=== PATIENT | male | born 1970 | race Caucasian/White ===

== ENCOUNTER 2020-12-26 19:26 | Emergency (ER) | payer OTHER, SELFPAY ==
[2020-12-26 19:50] VITALS: BP 98/61; PULSE 82; RESP 17; TEMP 37.2; O2SAT 96; BMI 33.0
--- NOTE | 2020-12-26 22:13 | XRR_ITS ---
PROCEDURE INFORMATION: Exam: XR Chest Exam date and time: 12/26/2020 10:13 PM Age: 50 years old Clinical indication: Patient HX: Fever x 6days, lightheaded, cough, n/v TECHNIQUE: Imaging protocol: XR of the chest. Views: 1 view. COMPARISON: No relevant prior studies available. FINDINGS: Lungs: Lungs are clear. Pleural spaces: There is no pleural effusion or pneumothorax. Heart/Mediastinum: The cardiac silhouette is within normal limits of size given AP technique. Bones/joints: Bones are unremarkable. XR/XR chest 1V portable [id number] IMPRESSION: No acute findings.
--- NOTE | 2020-12-26 22:22 | ED_ITS ---
HPI - Fever General: Chief Complaint: Fever Stated Complaint: FEVER Time Seen by Provider: 12/26/20 22:13 Source: patient Mode of arrival: ambulatory Limitations: no limitations History of Present Illness: HPI Narrative: 50-year-old male states that he has been having low-grade fevers over the last 6 days. He states he is taken Motrin Tylenol at home and his temperature has been getting 200 101. He is afebrile here. He states his blood pressures been running a little low as well. He had a slight cough over the last 6 days. He denies any neck pain or sore throat. He denies any shortness of breath. He states he is also around a lot of ticks and could have had a tick bite as well. Denies any sick contacts. Associated symptoms: Deny abdominal pain, chest pain, diarrhea, dysuria, headache(s), nausea or vomiting Review of Systems Const: Reports: fever(s) Eyes: Denies: blurry vision or eye discomfort ENMT: Denies: throat pain or dental pain Card: Denies: chest pain Resp: Denies: dyspnea GI: Denies: abdominal pain, nausea, vomiting or diarrhea : Denies: dysuria Musc: Denies: neck pain or back pain Skin/Breast: Denies: rash Neuro: Denies: headache(s) Psych: Denies: depression Artemio/Lymph: Denies: easy bruising All/Imm: Denies: urticaria Physical Exam Const: COMMON NORMALS: no acute distress, patient oriented x3 and healthy appearing HENMT: COMMON NORMALS: normocephalic and atraumatic HEAD & SCALP: normocephalic and atraumatic Eye: COMMON NORMALS: Equal, round and reactive pupils present and EOMs intact bilaterally PUPIL: Yes Equal, round and reactive pupils present Neck/C-Spine: COMMON NORMALS: full ROM and supple Chest: COMMONS NORMALS: normal inspection of the chest and normal palpation of entire chest wall Resp: COMMON NORMALS: normal respiratory effort, No retractions, No use of accessory muscles and clear to auscultation bilaterally AUSCULTATION: clear to auscultation bilaterally Cardio: COMMON NORMALS: regular rate, regular rhythm and No murmurs present (Cardio) RATE: regular rate RHYTHM: regular rhythm GI: COMMON NORMALS: Normal to inspection, nondistended, normoactive bowel sounds present, Soft to palpation, non-tender and no masses PALPATION: Yes Soft to palpation Extremity: COMMON NORMALS: normal to inspection and full ROM Neuro: COMMON NORMALS: patient oriented x3, moves all extremities and no focal motor deficits Psych: COMMON NORMALS: mental status grossly normal, Normal thought process present and cooperative THOUGHT PROCESS: Normal thought process present Skin: COMMON NORMALS: no rashes or lesions noted and no wounds GENERAL SKIN EXAM: no rashes or lesions noted Course Vital Signs: Vital signs: Vital Signs Temperature 99 F 12/26/20 19:50 Pulse Rate 86 12/27/20 01:07 Respiratory Rate 18 12/27/20 01:07 Blood Pressure 140/72 12/27/20 01:07 Pulse Oximetry 100 12/27/20 01:07 MDM - Fever MDM Narrative: Medical decision making narrative: Patient presents with fever slight cough. His blood work here are normal. Patient has had a recent tick bite we will start him on doxycycline for possible tickborne illness. He is to follow-up PCP and return if worsening. Lab Data: Labs: Lab Results 12/26/20 12/26/20 12/26/20 Range/Units 22:35 22:55 22:55 WBC 3.9 L (4.0-10.0) 10^3/ uL RBC 4.85 (4.1-5.3) 10^6/u L Hgb 13.9 (11.7-16.6) g/dL Hct 41.1 L (42.0-52.0) % MCV 84.7 (80-94) fL MCH 28.7 (28.0-34.0) pg MCHC 33.8 (30.0-36.0) g/dL RDW 12.7 (12.1-15.1) % Plt Count 101 L (130-400) 10^3/c mm MPV 11.5 H (7.4-10.4) fL Neut % (Auto) 54.5 % Lymph % (Auto) 37.2 % Pennington % (Auto) 6.7 % Eos % (Auto) 0.5 % Baso % (Auto) 0.8 % Neut # (Auto) 2.13 (1.8-7.7) 10^3/u L Lymph # (Auto) 1.5 (0.8-4.8) 10^3/u L Pennington # (Auto) 0.3 (0.2-0.9) 10^3/u L Eos # (Auto) 0.0 (0.0-0.8) 10^3/u L Baso # (Auto) 0.0 (0.0-0.1) 10^3/u L Nucleated RBC % (a uto) 0 % Nucleated RBCs # 0.0 /100WBC Sodium 128 L (136-145) mmol/L Potassium 4.1 (3.5-5.1) mmol/L Chloride 93 L (98-107) mmol/L Carbon Dioxide 25 (22-29) mmol/L Anion Gap 14.1 (5-19) BUN 28 H (6-20) mg/dL Creatinine 2.1 H (0.7-1.2) mg/dL GFR Calculation 33.5 L (90-130) mL/min Glucose 124 H (65-115) mg/dL Calculated Osmolal ity 273 L (285-295) mOsm/k g Lactate (0.5-2.2) mmol/L Calcium 8.9 (8.5-10.5) mg/dL Total Bilirubin 0.7 (0.15-1.2) mg/dL AST 158 H (0-40) U/L ALT 211 H (0-41) U/L Alkaline Phosphata se 359 H (40-130) IU/L Total Protein 7.2 (6.6-8.7) g/dL Albumin 3.8 (3.5-5.2) g/dL Globulin 3.4 (1.3-4.6) g/dL TSH 3.73 (0.27-4.20) uIU/ mL Urine Color Dark yellow (Yellow) Urine Appearance Cloudy (CLEAR) Urine pH 5 (5-7) Ur Specific Gravit y 1.025 (1.005-1.030) Urine Protein Trace (Negative) Urine Glucose (UA) Norm (Normal) Urine Ketones Negative (Negative) Urine Blood Neg (Negative) Urine Nitrate Negative (Negative) Urine Bilirubin 2+ H (Negative) Urine Urobilinogen 8 H (Negative) mg/dL Ur Leukocyte Na ase Trace H (Negative) Urine RBC 0-4 H (0-2) /hpf Urine WBC 0-4 H (0-5) /hpf Ur Squamous Epith Cells 0-4 H (0-5) /hpf Amorphous Sediment 2+ /hpf Urine Bacteria Trace (NONE) /hpf Hyaline Casts 5-10 H /lpf SARS-CoV-2 Ag (Rap id) (Negative) 12/26/20 12/26/20 Range/Units 22:55 23:00 WBC (4.0-10.0) 10^3/ uL RBC (4.1-5.3) 10^6/u L Hgb (11.7-16.6) g/dL Hct (42.0-52.0) % MCV (80-94) fL MCH (28.0-34.0) pg MCHC (30.0-36.0) g/dL RDW (12.1-15.1) % Plt Count (130-400) 10^3/c mm MPV (7.4-10.4) fL Neut % (Auto) % Lymph % (Auto) % Pennington % (Auto) % Eos % (Auto) % Baso % (Auto) % Neut # (Auto) (1.8-7.7) 10^3/u L Lymph # (Auto) (0.8-4.8) 10^3/u L Pennington # (Auto) (0.2-0.9) 10^3/u L Eos # (Auto) (0.0-0.8) 10^3/u L Baso # (Auto) (0.0-0.1) 10^3/u L Nucleated RBC % (a uto) % Nucleated RBCs # /100WBC Sodium (136-145) mmol/L Potassium (3.5-5.1) mmol/L Chloride (98-107) mmol/L Carbon Dioxide (22-29) mmol/L Anion Gap (5-19) BUN (6-20) mg/dL Creatinine (0.7-1.2) mg/dL GFR Calculation (90-130) mL/min Glucose (65-115) mg/dL Calculated Osmolal ity (285-295) mOsm/k g Lactate 1.2 (0.5-2.2) mmol/L Calcium (8.5-10.5) mg/dL Total Bilirubin (0.15-1.2) mg/dL AST (0-40) U/L ALT (0-41) U/L Alkaline Phosphata se (40-130) IU/L Total Protein (6.6-8.7) g/dL Albumin (3.5-5.2) g/dL Globulin (1.3-4.6) g/dL TSH (0.27-4.20) uIU/ mL Urine Color (Yellow) Urine Appearance (CLEAR) Urine pH (5-7) Ur Specific Gravit y (1.005-1.030) Urine Protein (Negative) Urine Glucose (UA) (Normal) Urine Ketones (Negative) Urine Blood (Negative) Urine Nitrate (Negative) Urine Bilirubin (Negative) Urine Urobilinogen (Negative) mg/dL Ur Leukocyte Na ase (Negative) Urine RBC (0-2) /hpf Urine WBC (0-5) /hpf Ur Squamous Epith Cells (0-5) /hpf Amorphous Sediment /hpf Urine Bacteria (NONE) /hpf Hyaline Casts /lpf SARS-CoV-2 Ag (Rap id) Negative (Negative) Imaging Data^: CXR: Attestation: I personally reviewed and interpreted this imaging study as follows: Radiologist's impression: [address] [address] XRay Report Signed Patient: Gagandeep Ocampo Unit #: [id number] : 1970 Age/Sex: 50 / M ADM Date: 12/26/20 Loc: ER Room/Bed: Attending Dr: Ordering Provider/Ordering MD: Juan Manuel Hines MD Date of Service: 12/26/20 Procedure(s): XR chest 1V portable [id number] Accession Number(s): [id number] Report Number: [id number] PROCEDURE INFORMATION: Exam: XR Chest Exam date and time: 12/26/2020 10:13 PM Age: 50 years old Clinical indication: Patient HX: Fever x 6days, lightheaded, cough, n/v TECHNIQUE: Imaging protocol: XR of the chest. Views: 1 view. COMPARISON: No relevant prior studies available. FINDINGS: Lungs: Lungs are clear. Pleural spaces: There is no pleural effusion or pneumothorax. Heart/Mediastinum: The cardiac silhouette is within normal limits of size given AP technique. Bones/joints: Bones are unremarkable. XR/XR chest 1V portable [id number] IMPRESSION: No acute findings. Discharge Plan Discharge Patient Disposition: Home Clinical Impression: Tick borne fever Condition: Stable Prescriptions: New doxycycline hyclate 100 mg capsule 100 mg PO BID 14 Days Qty: 28 RF: 0 Discharge Orders: Discharge ED (Routine); Ordered 12/26/20 Ordered By: Juan Manuel Hines Referrals: Maria T Mcmahon DO [Primary Care Provider] - 1-3 days Discharge Diet: Advance as tolerated Discharge Activity: Resume usual activity Patient Instructions: Tick Bite (ED) Coding Level of Care Code ED Switch House Operator for Ceciliag Fwd Exam Comprehensive
[2020-12-26] MEDS: sodium chloride 0.9% 1,000 ML 999 ML IV (22:30)
[2020-12-26 22:59] VITALS: BP 104/63; PULSE 83; RESP 18; O2SAT 97
[2020-12-26 23:04] LABS: Bilirubin Urine 2+ (Negative); Blood Urine Neg (Negative); Glucose Urine UA Norm (Normal); Ketones Urine Negative (Negative); Leukocyte Esterase Urine Trace (Negative); Nitrate Urine Negative (Negative); Protein Urine Trace (Negative); Specific Gravity, Urine 1.025 (1.005-1.030); Urine Appearance Cloudy (CLEAR); Urine Color Dark Yellow (Yellow); Urobilinogen Urine 8 mg/dL (Negative); pH Urine 5 (5-7)
[2020-12-26 23:05] LABS: Add Urine Microscopic? YES; Amorphous Sediment Urine 2+ /hpf; Bacteria Urine TRACE /hpf; RBC Urine 0-4 /hpf (0-2); Squamous Epithelial Cell Urine 0-4 /hpf (0-5); WBC Urine 0-4 /hpf (0-5)
[2020-12-26 23:18] LABS: Basophils % 0.8 %; Eosinophils % 0.5 %; Hematocrit 41.1 % (42.0-52.0); Hemoglobin 13.9 g/dL (11.7-16.6); Lymphocytes # 1.5 10^3/uL (0.8-4.8); Lymphocytes % 37.2 %; Mean Corpuscular HGB Conc 33.8 g/dL (30.0-36.0); Mean Corpuscular Hemoglobin 28.7 pg (28.0-34.0); Mean Corpuscular Volume 84.7 fL (80-94); Mean Platelet Volume 11.5 fL (7.4-10.4); Monocytes # 0.3 10^3/uL (0.2-0.9); Monocytes % 6.7 %; Neutrophils # 2.13 10^3/uL (1.8-7.7); Neutrophils % 54.5 %; Nucleated Red Blood Cells % 0 %; Platelet Count 101 10^3/cmm (130-400); Red Blood Count 4.85 10^6/uL (4.1-5.3); Red Cell Distribution Width 12.7 % (12.1-15.1); White Blood Count 3.9 10^3/uL (4.0-10.0)
[2020-12-26 23:29] VITALS: BP 109/71; PULSE 82; RESP 18; O2SAT 100
[2020-12-26 23:34] LABS: SARS Covid-2 Antigen Negative (Negative)
[2020-12-26 23:36] LABS: Lactate (Lactic Acid level) 1.2 mmol/L (0.5-2.2)
[2020-12-26 23:40] LABS: Slide Review Slide Review Perform
[2020-12-26 23:47] LABS: Alanine Aminotransferase 211 U/L (0-41); Albumin Level 3.8 g/dL (3.5-5.2); Alkaline Phosphatase 359 IU/L (40-130); Anion Gap 14.1 (5-19); Aspartate Amino Transferase 158 U/L (0-40); Blood Urea Nitrogen 28 mg/dL (6-20); Calcium 8.9 mg/dL (8.5-10.5); Carbon Dioxide 25 mmol/L (22-29); Chloride 93 mmol/L (98-107); Globulin 3.4 g/dL (1.3-4.6); Glomerular Filtration Rate 33.5 mL/min (90-130); Glucose 124 mg/dL (65-115); Osmolality Calculated 273 mOsm/kg (285-295); Potassium 4.1 mmol/L (3.5-5.1); Sodium 128 mmol/L (136-145); Thyroid Stimulating Hormone 3.73 uIU/mL (0.27-4.20); Total Bilirubin 0.7 mg/dL (0.15-1.2); Total Protein 7.2 g/dL (6.6-8.7)
[2020-12-27] VITALS: BP 138/99; PULSE 88; RESP 18; O2SAT 100
[2020-12-27] MEDS: sodium chloride 0.9% 1,000 ML 999 ML IV (00:22)
[2020-12-27 00:29] VITALS: BP 154/119; PULSE 97; RESP 18; O2SAT 96
[2020-12-27 00:59] VITALS: BP 132/72; PULSE 86; RESP 18; O2SAT 96
[2020-12-27 01:07] VITALS: BP 140/72; PULSE 86; RESP 18; O2SAT 100
[2020-12-28 12:28] LABS: Lyme AB Screen <0.90 index
[2021-01-02 17:32] LABS: E. Chaffeensis AB IGG <1:64; E. Chaffeensis AB IGM <1:20
[2021-01-03 17:27] LABS: RMSF IGG NOT DETECTED; RMSF IGM NOT DETECTED
== END 2020-12-27 01:14 | disposition home or self-care (01) ==
PROVIDERS: Emergency Provider Emergency Medicine; PCP Family Medicine
DX: A93.8 Other specified arthropod-borne viral fevers (principal)
CPT/HCPCS: 71045; 80053; 81001; 83605; 84443; 85025; 86618; 86666; 86757; 87040; 87426; 96360; 96361; 99284; J7030

== ENCOUNTER → 2021-01-02 11:19 | Outpatient (BNVA) | payer OTHER, SELFPAY | PROVIDERS: PCP Family Medicine; Visit Provider Family Medicine | DX: R79.89 Other specified abnormal findings of blood chemistry (principal); I10 Essential (primary) hypertension; E78.00 Pure hypercholesterolemia, unspecified; I25.2 Old myocardial infarction | CPT/HCPCS: 80053 ==

== ENCOUNTER → 2021-01-31 08:34 | Outpatient (BNVA) | payer OTHER, SELFPAY | PROVIDERS: PCP Family Medicine; Visit Provider Family Medicine | DX: R79.89 Other specified abnormal findings of blood chemistry (principal); E78.00 Pure hypercholesterolemia, unspecified; I25.2 Old myocardial infarction; I10 Essential (primary) hypertension; Z12.11 Encounter for screening for malignant neoplasm of colon; Z12.5 Encounter for screening for malignant neoplasm of prostate | CPT/HCPCS: 80053; 80061; G0103 ==

== ENCOUNTER 2023-08-24 10:00 | Outpatient (CLI) | payer BC, SELFPAY ==
--- NOTE | 2023-08-24 | ECG_ITS ---
[facility] Test Date: 2023-08-24 Pat Name: Gagandeep Ocampo Department: Room: Gender: Male Communication Clerk: Jessica LeeJonathan : 1970 Requested By: Connie Tillman Order Number: [id number] Velia MD: Shoaib Hernandez M.D. Interpretive Statements NAME OF STUDY: LEXISCAN SESTAMIBI STRESS TEST INDICATION: [Chest Pain, ] Procedure: At the baseline, the blood pressure was 149/101 mmHg with a heart rate of 53 bpm. The electrocardiogram showed sinus bradycardia, interventricular conduction delay with normal ST and T's. The Lexiscan was infused over a period of 20 seconds. A total of 0.4 mg of Lexiscan was infused. The stress phase was continued for a total of 5 minutes. Heart rate was at the end of stress phase was 61 bpm and a blood pressure of 145/93 mmHg. The EKG at the peak infusion revealed normal sinus rhythm with no significant ST-T wave changes. Sestamibi was injected 20 seconds after the Lexiscan infusion. Blood pressure at the end of recovery phase was 140/92 mmHg with a heart rate of 60 bpm. Conclusion: 1. Normal EKG response to Lexiscan infusion 2. No Lexiscan induced chest pain or cardiac arrhythmia. 3. Normal blood pressure and heart rate response. 4. Sestamibi/sestamibi perfusion scan pending; see separate report. Electronically Signed On 09-04-2023 11:57:32 SANDER OPERATOR by Shoaib Hernandez M.D. [id number]
[2023-08-24 10:26] VITALS: BMI 33.8
--- NOTE | 2023-08-24 10:27 | NMCV_ITS ---
NM bailey perf SPECT r/s* [id number] Gagandeep Ocampo Age: 52 Gender: M : 1970 Exam Date: 08/24/2023 10:57 Ordering Phys: Connie Tillman Technologist: MERLINE Engle Exam Location: [facility] Indications: CHEST PAIN STRESS TEST Please see separate stress test report in [facility] for full findings IMAGE PROTOCOL Rest/Stress 1 Lexiscan Day Radiopharmaceutical Dose (mCi) Administration Site Administered by Rest: Tc-99m 11.0 IV MERLINE Engle Sestamibi Stress:Tc-99m 32.4 IV Patricia Weiss, PRIMER BOXER Sestamibi Rest: 24-Aug-2023 60 Discovery 630 Stress: 24-Aug-2023 30 Discovery 630 0.4mg Lexiscan. Images obtained in supine and prone position. SPECT RESULTS Technical Quality: Excellent Raw Data Analysis: Normal Image Corrections: No attenuation or motion correction applied Summed Stress Score: 24 Summed Rest Score: 19 Summed Difference Score: 5 PERFUSION FINDINGS There is a large sized fixed area of partially reversible perfusion defect noted in apical, apical anterior and apical septal robert. This is consistent with large area of prior infarct with medium sized area of cinthia-infarct ischemia in LAD territory. There is a large sized mostly fixed perfusion defect noted in the inferior and inferolateral robert. This is consistent with large sized area of prior infarct in RCA and left circumflex artery territories with minimal cinthia-infarct ischemia. FUNCTIONAL RESULTS (calculated via Gated SPECT) Stress Image LV EF (%): 42 Stress EDV (mL):151 TID: 1.3 Stress ESV (mL):88 FUNCTIONAL FINDINGS: LV systolic function is mild to moderately reduced. TID ratio is elevated. This represents subendocardial ischemia versus multivessel CAD. IMPRESSIONS 1. Abnormal myocardial perfusion imaging with large area of prior infarct with medium sized area of cinthia-infarct ischemia in LAD territory. 2. Large areas of prior infarct with minimal cinthia-infarct ischemia seen in RCA and left circumflex artery territories. 3. LV systolic function is mild to moderately reduced. 4.TID ratio is elevated. This may represent subendocardial ischemia versus multivessel coronary artery disease. Shoaib Hernandez MD (Electronically Signed) Final Date: 26 August 2023 09:08 S
[2023-08-24] MEDS: regadenoson 0.4 Mg/5 ml Syringe IVP (12:12)
[2023-08-24 12:31] VITALS: BP 140/92; PULSE 58
== END 2023-08-24 10:01 | disposition home or self-care (01) ==
PROVIDERS: PCP Family Medicine; Visit Provider Nurse Practitioner Family
DX: R07.89 Other chest pain (principal)
CPT/HCPCS: 36415; 78452; 93017; 96374; A9500; J2785

== ENCOUNTER 2023-09-09 13:26 | Outpatient (CLI) | payer BC, SELFPAY ==
--- NOTE | 2023-09-09 13:45 | USCV_ITS ---
Gagandeep Ocampo Age: 52 Gender: M : 1970 Exam Date: 09/09/2023 12:58 Ordering Phys: Shoaib Hernandez M.D ([email or web address]) Technologist: CT Exam Location: [facility] [place] Indication: sob BP: 110 / 68 HR: Rhythm: Sinus Technical Quality: Adequate MEASUREMENTS (Male / Female) Normal Values 2D ECHO LVOT Diameter 2.2 cm LV Ejection Fraction MOD 2C 70.3 % LV Ejection Fraction 2C AL 0.0 % LA Diameter 4.1 cm Aorta at Sinotubular Diameter 3.0 cm IVC Diameter 1.7 cm M-MODE LA Ao Ratio MM 1.5 AV Cusp Separation MM 2.6 cm DOPPLER AV Peak Velocity 171.0 cm/s LVOT Peak Velocity 143.0 cm/s AV Area Cont Eq vti 3.7 cm squared AV Area Cont Eq pk 3.1 cm squared MV Peak Velocity 101.0 cm/s MV Area PHT 2.5 cm squared Mitral E to A Ratio 0.8 TV Peak Velocity 129.5 cm/s TR Peak Velocity 132.0 cm/s TR Peak Gradient 7.0 mmHg TV Peak E Velocity 75.0 cm/s Right Atrial Pressure 3.0 mmHg Pulmonary Artery Systolic Pressu 10.0 mmHg PV Peak Velocity 116.0 cm/s FINDINGS Left Ventricle Left ventricle is normal in size. LV systolic function is normal with EF of 60-65%. No regional wall motion abnormalities. Grade 1 diastolic dysfunction. Right Ventricle Normal in size and function Right Atrium Normal in size Left Atrium Normal in size Mitral Valve Structurally normal mitral valve. Trace mitral regurgitation. Aortic Valve Structurally normal aortic valve. No significant stenosis or regurgitation. Tricuspid Valve Mild tricuspid regurgitation. Pulmonary artery systolic pressure is normal. Pulmonic Valve Not well visualized Pericardium Normal Aorta Normal in size IVC Appears to be normal CONCLUSIONS LV systolic function is normal with EF of 60 to 65%. Grade 1 diastolic dysfunction. Trace mitral regurgitation. Mild tricuspid regurgitation No comparison studies are available Shoaib Hernandez MD (Electronically Signed) Final Date: 15 September 2023 12:35 S
== END 2023-09-09 13:27 | disposition home or self-care (01) ==
LOC: RAD 13:26
PROVIDERS: Visit Provider Internal Medicine
DX: I08.1 Rheumatic disorders of both mitral and tricuspid valves (principal); R06.02 Shortness of breath
CPT/HCPCS: 93306

== ENCOUNTER 2023-09-15 11:05 | Outpatient (CLI) | payer BC, SELFPAY ==
[2023-09-15 11:25] LABS: Basophils # 0.1 10^3/uL (0.0-0.1); Basophils % 0.8 %; Eosinophils # 0.1 10^3/uL (0.0-0.8); Eosinophils % 2.2 %; Hematocrit 45.4 % (37-53); Lymphocytes # 1.8 10^3/uL (0.8-4.8); Lymphocytes % 28.6 %; Mean Corpuscular HGB Conc 33.9 g/dL (30-55); Mean Corpuscular Hemoglobin 29.8 pg (27-33); Mean Platelet Volume 9.7 fL (7.4-10.4); Monocytes # 0.4 10^3/uL (0.2-0.9); Monocytes % 6.1 %; Neutrophils # 3.97 10^3/uL (1.8-7.7); Nucleated Red Blood Cells % 0 %; Platelet Count 270 10^3/cmm (157-399); Red Blood Count 5.16 10^6/uL (3.85-5.65)
[2023-09-15 11:41] LABS: INR 0.87 (0.83-1.21); Prothrombin Time (Patient) 12.1 Seconds (12.0-15.1)
[2023-09-15 11:47] LABS: Anion Gap 16.4 (5-19); Blood Urea Nitrogen 17 mg/dL (6-20); Calcium 9.5 mg/dL (8.5-10.5); Carbon Dioxide 28 mmol/L (22-29); Chloride 99 mmol/L (98-107); Glomerular Filtration Rate 63.3 mL/min (90-130); Glucose 119 mg/dL (65-115); Osmolality Calculated 291 mOsm/kg (285-295); Potassium 4.4 mmol/L (3.5-5.1); Sodium 139 mmol/L (136-145)
== END 2023-09-15 11:06 | disposition home or self-care (01) ==
LOC: LAB 11:07
PROVIDERS: Visit Provider Internal Medicine
DX: I25.10 Atherosclerotic heart disease of native coronary artery without angina pectoris (principal); I10 Essential (primary) hypertension
CPT/HCPCS: 36415; 80048; 85025; 85610

== ENCOUNTER 2023-09-17 07:08 | Outpatient (CLI) | payer BC, SELFPAY ==
[2023-09-17] VITALS (12 sets, daily range): BP systolic 137–178; BP diastolic 89–111; PULSE 55–74; RESP 7–18; TEMP 36.5–37.2; O2SAT 94–97; BMI 34.7
--- NOTE | 2023-09-17 08:30 | XACV_ITS ---
Exam Room: [facility] Ht: 178 cm Wt: 110 kg BSA: 2.37 m2 Gender: Male : 1970 Any Known Allergies: No known allergies Exam Priority: Routine Procedure(s): Procedure Description: Diagnostic procedure Procedure Description: PCI procedure Procedure Description: Left Heart Catheterization Procedure Description: Left ventriculography Procedure Description: Drug Eluting Coronary Stent Procedure Description: PTCA Procedure Description: Miscellaneous Procedure Description: ACT Procedure Description: Coronary Angiography Diagnostic Cath Status: Elective Diagnostic Findings * INDICATION: Chest pain/dyspnea on exertion/ abnormal stress test. * Left Main has no significant disease. * Circumflex has mild luminal irregularities. * Right Coronary Artery has no significant disease. Givens collaterals to LAD. * Mid Left Anterior Descending:chronic total occlusion of prior proximal to mid vessel stent, LEON: 0 flow. There is another distal vessel stent that has no flow. * Coronary angiography shows right dominance. PCI Status: Elective PCI Indication: Other Interventional Findings * Procedure detail: We engaged left main artery with XB 3.5 guide catheter. IV heparin was administered to maintain anticoagulation. 0.014 run-through guidewire was initially used to attempt crossing chronically occluded proximal to mid LAD stent. However it could not cross. Then we then switched to gliding pilot instructor 50 wire. It was able to cross totally occluded segment and went into small to medium size diagonal vessel. We dilated total occlusion with 1.2 x 12 mm semicompliant balloon. This was followed by dilation with 2.0 x 15 mm semicompliant balloon. We then advanced run-through guidewire into distal LAD as flow was restored. Lye Treater wire was withdrawn. At this time we dilated the occluded segment with 2.5 x 20 mm semicompliant balloon. This was followed by placement of 2.75 x 30 mm resolute Matilde drug-eluting stent extending from mid LAD stent to distal LAD stent. In the distal stent, we dilated it with a 2.5 x 15 mm NC balloon. Proximal segment of the newly placed stent and the overlapping segment was post-dilated with 3.0 x 15 mm NC balloon. At this time final angiogram was obtained that showed excellent stent expansion, no residual stenosis and LEON-3 flow. Guidewire and guide catheter were removed. Patient left the Production Consultant in a stable condition.. * Mid Left Anterior Descendin% stenosis treated with a AB MINI TREK 1.20X12 RX BALLOON, AB MINI TREK 2.00X15 RX BALLOON, AB TREK 2.50X20 RX BALLOON, MDT R MATILDE 2.75X30 DIYA, MDT NC EUPHORA RX 2.09E67KG BALLOON, and MDT NC EUPHORA RX 3.16I22MX BALLOON. 0% residual stenosis, LEON: 3 flow. Conclusions 1. Chronic total occlusion of proximal to mid LAD stent s/p successful revascularization with 1 stent. 2. Normal left ventricular systolic function. Ejection fraction of 60%. 3. Mid Left Anterior Descending was treated with a Balloon, Balloon, Balloon, Drug Eluting Stent, Balloon, and Balloon. Recommendations * Dual antiplatelet therapy with aspirin and brilinta. * High intensity statin therapy. * Outpatient cardiology follow up in 4 weeks. Interventional RX Recommendation: PCI w/o planned CABG Diagnostic RX Recommendation: PCI w/o planned CABG Anticoagulation: Heparin Ventriculography Ejection Fraction: 60.0 % Pressures Phase:Rest AO : 148 / 94 ( 115 ) @ 9:22:00 AM 111 / 84 ( 99 ) @ 9:27:00 AM 143 / 77 ( 105 ) @ 9:47:00 AM 141 / 77 ( 104 ) @ 9:47:00 AM LV : 159 / -10 / 12 @ 9:46:00 AM 158 / -14 / 12 @ 9:47:00 AM 158 / -13 / 10 @ 9:47:00 AM Valves Phase:DefaultPhase AV : 0.0 @ 7:52:48 AM 0.0 @ 7:52:48 AM AV Mean Gradient: 0.0 @ 7:52:48 AM Clinical Evaluation EBL: 5mL-10mL Procedural Details Identified patient by full name and date of as verbalized by the patient/guarantor. Pre-Procedure Time Out. Does the consent match the physician's order: Yes. Accurate & Complete Informed Consent: Yes. Inpatient/Outpatient History & Physical on Chart: Yes. If H&P is completed, is and addenduem needed: No; If yes, is the addendum complete: N/A. Visualize and Verify Site with Patient/Guarantor: N/A. Relevant Radiology Images available: Yes. Pre-op teaching completed and patient verbalized understanding. The risks, benefits, and alternatives of sedation and/or procedure were discussed by physician. The patient agrees to continue. Procedure started. Current Diagnosis : Chest Pain. [facility] Clinical Fraility Score: 3: Managing Well. Production Consultant Indications: Worsening Angina. Chest Pain Symptom Assessment: Atypical Angina. Correct patient, site and procedure confirmed by cath team. Current diagnosis: Chest Pain. PERRLA. Strong, equal hand bioinformatics assistant bilaterally. Lungs clear x 5 lobes. IV Site on Arrival: 20 gauge in the left anticubital. IV Fluids: 0.9% NaCl at KVO. 0 mL infused prior to garage laborer. Pre Procedural Pulses: bilateral dorsalis pedis was 3+. Pre Procedural Pulses: bilateral posterior tibial was 3+. Pre Procedural Pulses: bilateral radial was 3+. Oxygen started at 2liters/min via nasal canula. right groin was prepped with chloroprep then draped in the usual sterile fashion. right radial was prepped with chloroprep then draped in the usual sterile fashion. Baseline sample Acquired. HR: 61 BPM. Physician arrived. Immediate Pre-Procedure Time Out. Physician scrubbed in. Correct Patient: Yes; Correct Procedure: Yes; Correct Site: Yes; Correct Patient Position: Yes; Correct Supplies: Yes; Dried Flammable Prep: Yes; Blood Products Available: N/A;. Lidocaine 1% infiltrated to the right radial. Arterial access obtained. A 5 indian TIG catheter in over wire. Catheter removed over the exchange wire. A 5 indian JL4 catheter in over wire. Multiple views taken of left coronary artery. Catheter removed over the exchange wire. A 5 indian JR4 catheter in over wire. Multiple views taken of right coronary artery. Catheter removed over the exchange wire. A 5 indian Angled Pig catheter in over wire. Catheter removed over the exchange wire. A TR Band was successful obtaining hemostatsis at the Right Radial artery insertion site. Lidocaine 1% infiltrated to the right groin. Arterial access obtained with micropuncture set. A 5 indian Angled Pig catheter in over wire. EDP Sample taken: LV 159/-11,12; HR: 56 BPM; SpO2: 96%. LV gram performed in SALVADOR @ 10 mL/second for a total of 30 mL. EDP Sample taken: LV 158/-15,12; HR: 59 BPM; SpO2: 96%. Pullback taken: LV 158/-14,10; AO 143/77(105); Mean: 0mmHg, Peak to Peak: 0mmHg, SEP: 4sec/min; HR: 55 BPM; SpO2: 96%. Catheter removed over the exchange wire. 6 indian XB 3.5 guide catheter was inserted over the wire. Add inventory: Co-gliding pilot instructor, endoflator. Runthrough guidewire was advanced through the guide catheter to lesion in the mid LAD. Lye Treater 50 guidewire was advanced through the guide catheter to lesion in the mid LAD. 1.2x12mm Balloon inserted to lesion in the mid LAD. Inflation number : 1 A AB MINI TREK 1.20X12 RX BALLOON was prepped and advanced across the Mid LAD , then inflated to 8 SANGEETHA for 0:20 seconds. Inflation number: 2 The AB MINI TREK 1.20X12 RX BALLOON was reinflated across the Mid LAD, to 8 SANGEETHA for 0:10 seconds. Balloon out. Lye Treater 50 wire out. Inflation number : 3 A AB MINI TREK 2.00X15 RX BALLOON was prepped and advanced across the Mid LAD , then inflated to 10 SANGEETHA for 0:25 seconds. Balloon out. A second Runthrough guidewire was advanced through the guide catheter to lesion in the mid LAD. The first Runthrough wire out. Inflation number : 4 A AB TREK 2.50X20 RX BALLOON was prepped and advanced across the Mid LAD , then inflated to 8 SANGEETHA for 0:18 seconds. Inflation number: 5 The AB TREK 2.50X20 RX BALLOON was reinflated across the Mid LAD, to 10 SANGEETHA for 0:10 seconds. Inflation number: 6 The AB TREK 2.50X20 RX BALLOON was reinflated across the Mid LAD, to 12 SANGEETHA for 0:18 seconds. Balloon out. ACT drawn. Results 381 seconds. Therapeutic limits - pre-heparin administration 90-150 seconds and monitoring heparin during a vascular procedure >250 seconds. Inflation Number : 7 A MDT R MATILDE 2.75X30 DIYA -Lot Number# _[id number] EXP: 11/24/2024 was prepped and advanced across the Mid LAD. The stent was deployed at 12 SANGEETHA for 0:30 seconds. Stent balloon out over wire. Results checked. Inflation number : 8 A MDT NC EUPHORA RX 2.17K09IP BALLOON was prepped and advanced across the Mid LAD , then inflated to 14 SANGEETHA for 0:17 seconds. Inflation number: 9 The MDT NC EUPHORA RX 2.39S91NB BALLOON was reinflated across the Mid LAD, to 12 SANGEETHA for 0:09 seconds. Balloon out. Inflation number : 10 A MDT NC EUPHORA RX 3.52I47OO BALLOON was prepped and advanced across the Mid LAD , then inflated to 12 SANGEETHA for 0:14 seconds. Inflation number: 11 The MDT NC EUPHORA RX 3.24D35GF BALLOON was reinflated across the Mid LAD, to 16 SANGEETHA for 0:14 seconds. Balloon out. Results checked. Inflation number: 12 The MDT NC EUPHORA RX 2.15Q46SJ BALLOON was reinflated across the Mid LAD, to 12 SANGEETHA for 0:11 seconds. Inflation number: 13 The MDT NC EUPHORA RX 2.94K12WF BALLOON was reinflated across the Mid LAD, to 12 SANGEETHA for 0:08 seconds. Balloon out. Results checked. Wire out. ACT drawn. Results 303 seconds. Therapeutic limits - pre-heparin administration 90-150 seconds and monitoring heparin during a vascular procedure >250 seconds. Guide catheter out. A Right femoral angiogram was performed to determine safe placement of closure device. Lidocaine 1% infiltrated to the right groin. A Angio-Seal VIP ([place]) was successful obtaining hemostatsis at the Right Femoral artery insertion site. Post Procedure: Pulses reassessed and unchanged. PERRLA. Strong, equal hand bioinformatics assistant bilaterally. No VTE prophylaxis required. Complications: None. Estimated blood loss: 5mL-10mL. Responsiveness - Normal response to verbal stimuli; alert and oriented, PERRLA. Airway - Unaffected, no intervention required; spontaneous ventilation. Circulation: W/N/L, pulses unchanged. Nausea/Vomiting: No. Procedure completed. Post-op diagnosis: LABORER PIPELINE previous LAD stent. DIYA placement. Medication's Wasted: Other = Fentanyl 50mcg Versed 1 mg. Medication's Wasted: Heparin = 1000 units. Medication's Wasted: Nitro = 49.6 mg. Total IV fluids: 110 mL. Vital chart was stopped. Patient transferred by stretcher to CPRU. Access Site Site: Right Radial artery Sheath Size: 6 Fr Hemostasis Method: TR Band Hemostasis Success: Successful Site: Right Femoral artery Sheath Size: 6 Fr Hemostasis Method: Angio-Seal VIP ([place]) Hemostasis Success: Successful Procedure Medications Start: 9:15 AM Stop: 9:15 AM Medication: Versed Amount: 1 mg Route: I.V. Start: 9:15 AM Stop: 9:15 AM Medication: Fentanyl Amount: 25 mcg Route: I.V. Start: 9:20 AM Stop: 9:20 AM Medication: Nitrogylcerin Amount: 200 mcg Route: I.A. Start: 9:21 AM Stop: 9:21 AM Medication: Versed Amount: 1 mg Route: I.V. Start: 9:22 AM Stop: 9:22 AM Medication: Heparin Amount: 5000 units Route: I.V. Start: 9:33 AM Stop: 9:33 AM Medication: Fentanyl Amount: 25 mcg Route: I.V. Start: 9:40 AM Stop: 9:40 AM Medication: Versed Amount: 1 mg Route: I.V. Start: 9:45 AM Stop: 9:45 AM Medication: Heparin Amount: 5000 units Route: I.V. Start: 10:01 AM Stop: 10:01 AM Medication: Heparin Amount: 1000 units Route: I.V. Start: 10:20 AM Stop: 10:20 AM Medication: Nitrogylcerin Amount: 200 mcg Route: I.C. Start: 10:46 AM Stop: 10:46 AM Medication: Hydralazine Amount: 10 mg Route: I.V. I, the attending physician, have reviewed and verified all procedure medications. Yes, all medications given per verbal order History/Risk Factors Hypertension: Yes Dyslipidemia: No Peripheral Arterial Disease (PAD): No Myocardial Infarction (MA): Yes Obesity: No Renal Disease: No Tobacco Use: Former Prior Interventions PCI: Yes CABG: No Valve Surgery: No Report Signatures Finalized by Shoaib Hernandez MD on 10/01/2023 11:37 AM
--- NOTE | 2023-09-17 09:00 | P.HPUD_ITS ---
Surgery/Procedure H&P Update DATE OF PROCEDURE: September 17, 2023 DATE H&P PERFORMED: 09/03/23 H&P UPDATE INFORMATION: I have reviewed H&P completed within last 30 days, I have examined patient prior to procedure and No changes to prior documentation PREOP DIAGNOSIS: Worsening angina/abnormal stress test PRIMARY INDICATION FOR PROCEDURE: Worsening angina/abnormal stress test PLANNED PROCEDURE: Operation Date: 09/17/23 08:30 Proposed Procedures p [facility] [address], R94.39(Left) - Shoaib Hernandez M.D Possible percutaneous coronary intervention PATIENT REASSESSED PRIOR TO SEDATION, WITH NO CHANGE NOTED: Yes PHYSICAL EXAM: alert, oriented x 3, clear to auscultation bilaterally and regular rate & rhythm AIRWAY EVAL/ANESTHESIA PLAN: normal airway, ASA III, Local Anesthesia, Risks, benefits & alternatives of sedation and/or procedure discussed and Patient agrees to continue as planned ADDITIONAL INFORMATION: Moderate sedation
--- NOTE | 2023-09-17 10:55 | SUR.PHASEI ---
POST CATH NOTE Received patient from blood bank laboratory technician. Status post cardiac catheterization via the right radial approach. TR Band in place. Right femoral access- angiosealed Both sites are hemostatic. Verbal post cath instructions went over with the patient. She understood well. Vitals and assessments per flowsheet. Call light in reach. Informed to call for needs. Family at bedside.
--- NOTE | 2023-09-17 11:07 | SUR.PHASEI ---
POST CATH FLUIDS IV rate 75 ml/hr of 0.9% ns per verbal order from DR Hernandez. Infusing withough difficulty.
[2023-09-17 14:56] LABS: Basophils % 0.7 %; Eosinophils # 0.1 10^3/uL (0.0-0.8); Hematocrit 38.9 % (37-53); Lymphocytes # 1.8 10^3/uL (0.8-4.8); Mean Corpuscular HGB Conc 34.7 g/dL (30-55); Mean Corpuscular Hemoglobin 29.8 pg (27-33); Mean Corpuscular Volume 85.9 fl (82-101); Mean Platelet Volume 9.5 fL (7.4-10.4); Monocytes # 0.4 10^3/uL (0.2-0.9); Monocytes % 7.6 %; Neutrophils # 3.03 10^3/uL (1.8-7.7); Neutrophils % 56.5 %; Nucleated Red Blood Cells % 0 %; Platelet Count 203 10^3/cmm (157-399); Red Blood Count 4.53 10^6/uL (3.85-5.65); White Blood Count 5.37 10^3/uL (3.29-11.43)
--- NOTE | 2023-09-17 15:01 | PM.MISC ---
Miscellaneous Note Purpose of Documentation: Brief procedure note Note: Patient found to have chronic total occlusion of mid LAD stent with collaterals from RCA. Given stress test abnormality in the LAD territory showing significant cinthia-infarct ischemia and symptoms of shortness of breath, chest pressure and fatigue worsening over time, we decided to revascularize LAD. S/p successful revascularization with 1 stent. Will continue dual antiplatelet therapy with aspirin and Brilinta. Continue Coreg and lisinopril. High intensity statin therapy. We will observe patient overnight and if stable will be discharged home tomorrow morning.
[2023-09-17 15:13] LABS: Anion Gap 13.9 (5-19); Blood Urea Nitrogen 18 mg/dL (6-20); Calcium 8.4 mg/dL (8.5-10.5); Carbon Dioxide 24 mmol/L (22-29); Chloride 104 mmol/L (98-107); Creatinine Clr Calc Pharmacy 95.2381; Glomerular Filtration Rate 69.8 mL/min (90-130); Glucose 141 mg/dL (65-115); Osmolality Calculated 290 mOsm/kg (285-295); Potassium 3.9 mmol/L (3.5-5.1); Sodium 138 mmol/L (136-145)
[2023-09-17] MEDS: sodium chloride 0.9% 1,000 ML 100 ML IV ×2 (16:12→23:19)
[2023-09-17] MEDS: carvedilol 12.5 mg Tablet PO (18:00)
[2023-09-17] MEDS: ticagrelor 90 mg Tablet PO (18:00)
[2023-09-18] VITALS: BP 152/95; PULSE 62; RESP 20; TEMP 37; O2SAT 95
[2023-09-18 03:57] LABS: Basophils % 0.7 %; Eosinophils # 0.1 10^3/uL (0.0-0.8); Eosinophils % 2.3 %; Hematocrit 39.6 % (37-53); Lymphocytes # 1.8 10^3/uL (0.8-4.8); Lymphocytes % 29.5 %; Mean Corpuscular HGB Conc 34.1 g/dL (30-55); Mean Corpuscular Hemoglobin 29.9 pg (27-33); Mean Corpuscular Volume 87.6 fl (82-101); Mean Platelet Volume 9.8 fL (7.4-10.4); Monocytes # 0.5 10^3/uL (0.2-0.9); Monocytes % 8.3 %; Neutrophils # 3.55 10^3/uL (1.8-7.7); Neutrophils % 58.9 %; Nucleated Red Blood Cells % 0 %; Platelet Count 203 10^3/cmm (157-399); Red Blood Count 4.52 10^6/uL (3.85-5.65); White Blood Count 6.03 10^3/uL (3.29-11.43)
[2023-09-18 04:00] VITALS: BP 167/104; PULSE 87; RESP 17; TEMP 36.9; O2SAT 97
[2023-09-18 04:30] LABS: Anion Gap 14.2 (5-19); Blood Urea Nitrogen 16 mg/dL (6-20); Calcium 8.5 mg/dL (8.5-10.5); Carbon Dioxide 23 mmol/L (22-29); Chloride 106 mmol/L (98-107); Creatinine Clr Calc Pharmacy 104.7619; Glomerular Filtration Rate 77.9 mL/min (90-130); Glucose 108 mg/dL (65-115); Osmolality Calculated 290 mOsm/kg (285-295); Potassium 4.2 mmol/L (3.5-5.1); Sodium 139 mmol/L (136-145)
[2023-09-18 08:13] VITALS: BP 152/104; PULSE 76; RESP 16; TEMP 36.8; O2SAT 97
--- NOTE | 2023-09-18 08:36 | PM.DCS ---
Discharge Providers Date of Admission: September 16/2024 Date of Discharge: September 18, 2023 Attending Provider at Admission: David Attending Provider at Discharge: Shoaib Hernandez M.D Primary Care Provider: JACK Blackburn Diagnoses at Discharge Discharge Diagnosis (1) Hypercholesteremia: Status: Chronic (2) Hypertension: Status: Chronic (3) Old [place] (myocardial infarction): Status: Chronic Permanent problem details: Apr 2020 (4) Coronary artery disease: Status: Acute (5) Glucose intolerance: Status: Acute Reason for Visit Reason for Visit: R94.39 Brief History: Patient was admitted yesterday electively for purposes of coronary angiography due to abnormal stress testing and chest discomfort. He has known coronary artery disease with previous stents. Hospital Course Hospital Course The stents in the LAD were occluded. The lathe operator contact lens was able to open nose and restent. No complications ensued. Initially the diagnostic was accomplished from the right radial artery with the intervention needed to be done via the groin. There are no complications with either entry site. No change in medication. Physical Exam Narrative: GENERAL: In general he looks and feels well HEENT: Exam within normal limits. NECK: Supple without jugular vein distention. The carotid upstroke is normal without bruits. BACK: Exam normal. LUNGS: Clear. HEART: Regular rate and rhythm. ABDOMEN: Benign without organomegaly or tenderness. EXTREMITIES: No edema. The right radial entry site in the right groin entry site is flat, dry without bleeding or hematoma or other vascular anomalies. NEUROLOGIC: Exam normal. SKIN: Unremarkable. Discharge Data Studies Completed and Pending Pending at discharge Category Date Time Status SEARCH ANALYST request for service Routine Exams 09/17/23 08:30 Taken Laboratory Results WBC 6.03 10^3/uL (3.29-11.43) 09/18/23 03:17 RBC 4.52 10^6/uL (3.85-5.65) 09/18/23 03:17 Hgb 13.50 g/dL (11.27-16.99) 09/18/23 03:17 Hct 39.6 % (37-53) 09/18/23 03:17 MCV 87.6 fl (82-101) 09/18/23 03:17 MCH 29.9 pg (27-33) 09/18/23 03:17 MCHC 34.1 g/dL (30-55) 09/18/23 03:17 RDW 13.0 % (12.1-15.1) 09/18/23 03:17 Plt Count 203 10^3/cmm (157-399) 09/18/23 03:17 MPV 9.8 fL (7.4-10.4) 09/18/23 03:17 Neut % (Auto) 58.9 % 09/18/23 03:17 Lymph % (Auto) 29.5 % 09/18/23 03:17 [place] % (Auto) 8.3 % 09/18/23 03:17 Eos % (Auto) 2.3 % 09/18/23 03:17 Baso % (Auto) 0.7 % 09/18/23 03:17 Neut # (Auto) 3.55 10^3/uL (1.8-7.7) 09/18/23 03:17 Lymph # (Auto) 1.8 10^3/uL (0.8-4.8) 09/18/23 03:17 [place] # (Auto) 0.5 10^3/uL (0.2-0.9) 09/18/23 03:17 Eos # (Auto) 0.1 10^3/uL (0.0-0.8) 09/18/23 03:17 Baso # (Auto) 0.0 10^3/uL (0.0-0.1) 09/18/23 03:17 Nucleated RBC % (auto) 0 % 09/18/23 03:17 Nucleated RBCs # 0.0 /100WBC 09/18/23 03:17 Sodium 139 mmol/L (136-145) 09/18/23 03:17 Potassium 4.2 mmol/L (3.5-5.1) 09/18/23 03:17 Chloride 106 mmol/L (98-107) 09/18/23 03:17 Carbon Dioxide 23 mmol/L (22-29) 09/18/23 03:17 Anion Gap 14.2 (5-19) 09/18/23 03:17 BUN 16 mg/dL (6-20) 09/18/23 03:17 Creatinine 1.0 mg/dL (0.7-1.2) 09/18/23 03:17 GFR Calculation 77.9 mL/min (90-130) L 09/18/23 03:17 Glucose 108 mg/dL (65-115) 09/18/23 03:17 Calculated Osmolality 290 mOsm/kg (285-295) 09/18/23 03:17 Calcium 8.5 mg/dL (8.5-10.5) 09/18/23 03:17 Vitals Last Vital Signs Temp 98.3 F 09/18/23 08:13 Pulse 76 09/18/23 08:13 Resp 16 09/18/23 08:13 BP 152/104 09/18/23 08:13 Pulse Ox 97 09/18/23 08:13 O2 Del Method Room Air 09/18/23 08:13 Discharge Plan Discharge Patient Disposition: Home Prescriptions: Continued metformin 500 mg tablet 500 mg PO BID aspirin [Adult Aspirin Regimen] 81 mg tablet,delayed release (DR/EC) 81 mg PO DAILY 90 Days Qty: 90 0RF carvedilol 12.5 mg tablet 12.5 mg PO BID 90 Days Qty: 180 0RF Rx Instructions: must administer with a meal/food lisinopril 20 mg tablet 20 mg PO DAILY 90 Days Qty: 90 0RF rosuvastatin 40 mg tablet 20 mg PO DAILY 90 Days Qty: 90 0RF Brilinta 90 mg tablet 90 mg PO BID 90 Days Qty: 180 0RF Discharge Orders: Discharge Order (Routine); Ordered 09/18/23 Ordered By: Rajesh Jones Referrals: Thelma Drew FNP [Nurse Practitioner] - 10/07/23 1:00 pm Connie Tillman FNP [Primary Care Provider] - 09/24/23 11:00 am Diet: Diabetic Activity: Increase activity as tolerated and Limit activity as instructed Patient Instructions: Coronary Angioplasty (DC), Post Angiogram Home Care Instructions Activity Restrictions/Additional Instructions: No lifting over 5 pounds for 2 days. Return to work 1 week from today Discharge Attestations Time Spent in Discharge Care*: greater than 30 min Quality Metrics Clinical Quality Measures [ No reported AMI, CVA or VTE this stay] Coding Level of Care Code 11144 Total time (in minutes) for Discharge: 32 Diagnoses Hypercholesteremia E78.00 Hypertension I10 Old [place] (myocardial infarction) I25.2 Coronary artery disease I25.10 Glucose intolerance E74.39
[2023-09-18] MEDS: atorvastatin 40 mg Tablet PO (08:41)
[2023-09-18] MEDS: carvedilol 12.5 mg Tablet PO (08:41)
[2023-09-18] MEDS: lisinopril 20 mg Tablet PO (08:41)
[2023-09-18] MEDS: ticagrelor 90 mg Tablet PO (08:41)
[2023-09-18] MEDS: aspirin 81 mg EC Tablet PO (08:41)
--- NOTE | 2023-09-18 08:49 | PC.CHAP ---
Pastoral Care Encounter/Spiritual Assessment Type of Contact [] Declined product owner visit [] Patient/Family/Request visit [] Outpatient visit [] Follow-up visit [] Physician referral [] Code/Alert [x] Routine visit [] Staff referral [] Actively dying [] Patient sleeping [] Family support [] [] Out of room [] Palliative care [] [] Receiving care in room [] Pre-surgical visit [] Trauma [] Long length of stay [] ICU visit [] Other: Relational/Emotional Strength [x] Patient feels connected with others/family/visitors/staff [] Distress [] Loneliness/isolation [] Abandonment Spirituality of Patient [x] Person of Ilsa [] Attends Moravian of their Ilsa [x] Believes in Prayer [] Reads Bible or Mu-Ism materials [] There are Spiritual issues to be addressed Environmental Coordinator Interventions [x] Prayer [x] Active listening [] Non-anxious presence [x] Spiritual/emotional support [] Crisis/trauma care [] Spiritual counseling [] Bereavement support [] Provided bereavement packet [] Provided Bible/devotional materials [] Provided toy/stuffed animal, coloring book to patient or family member [] Provided Communion [] Anointing/[place] [] Salvation [x] Completed spiritual assessment [] Other: Impact on Illness or Injury [] Angry [] Fearful [] Anxious [] Often cries [] Exhaustion [] Unable to work [] Unable to attend yazidism [] Unable to walk/stand [] Unable to read [] Unable to drive [] Unable to eat/drink [] Unable to sleep [] Unable to be with family [] Patient intubated [] Other: Summary Time spent with patient 5 min
== END 2023-09-18 09:02 | disposition home or self-care (01) ==
LOC: CCL 07:13 → CSU 11:59
PROVIDERS: PCP Nurse Practitioner Family; Visit Provider Internal Medicine
DX: I25.10 Atherosclerotic heart disease of native coronary artery without angina pectoris (principal); I25.82 Chronic total occlusion of coronary artery; E78.00 Pure hypercholesterolemia, unspecified; I10 Essential (primary) hypertension; I25.2 Old myocardial infarction; E74.39 Other disorders of intestinal carbohydrate absorption; Z95.5 Presence of coronary angioplasty implant and graft; Z79.82 Long term (current) use of aspirin; Z87.891 Personal history of nicotine dependence
CPT/HCPCS: 36415; 80048; 85025; 85347; 93458; 96361; 96365; 99152; 99153; C1725; C1760; C1769; C1874; C1887; C1894; C9600; J0360; J1200; J1644; J2250; J3010; J7030; Q9967

== ENCOUNTER 2024-11-13 13:19 | Emergency (ER) | payer BC, SELFPAY ==
[2024-11-13 13:33] VITALS: BP 208/127; PULSE 88; RESP 15; TEMP 36.5; O2SAT 97; BMI 35.9
--- NOTE | 2024-11-13 13:59 | ED_ITS ---
HPI - General Adult General: Chief complaint: General Medical Stated complaint: high bp Time Seen by Provider: 11/13/24 13:49 History of Present Illness: Patient sent in from urgent care due to high blood pressure. Patient has a known history of high blood pressure and has been out of his carvedilol for about 3 weeks. He has also been taken Sudafed for 2 weeks. He has a known pneumonia and was started on Levaquin today and on his carvedilol prescription was renewed. Patient was given clonidine at urgent care and did not come down as much that he would like so patient was sent to the ER. Patient has no symptoms associated with his elevated blood pressure. Associated symptoms: Deny chest pain, nausea, palpitations or vomiting Related Data Home Medications ?Medication ?Instructions ?Recorded ?Confirmed metformin 500 mg tablet 500 mg PO BID 09/02/2311/13 fenofibrate 54 mg tablet 54 mg PO DAILY 12/16/2311/04 Previous Rx's ?Medication ?Instructions ?Recorded aspirin 81 mg tablet,delayed 81 mg PO DAILY 90 days #9 0 tabs 05/08/21 release (Adult Aspirin Regimen) rosuvastatin 40 mg tablet 20 mg (1/2 x 40 mg) PO DAILY 90 05/08/21 days #90 tabs clopidogrel 75 mg tablet (Plavix) 75 mg PO DIRECTED #90 tabs 06/29/24 lisinopril 40 mg tablet 40 mg PO DAILY #90 tabs 06/12 03/05 albuterol sulfate 90 mcg/actuation 2 inh inhalation Q6 H PRN shortness 11/13/24 aerosol inhaler (Ventolin HFA) of breath or wheezing # 6.7 grams carvedilol 12.5 mg tablet 12.5 mg PO BID 30 days #60 t abs 11/13/24 levofloxacin 750 mg tablet 750 mg PO DAILY 7 days #7 t abs 11/13/24 Allergies Allergy/AdvReac Type Severity Reaction Status Date / Time No Known Allergies Allergy Verified 11/13/24 12:28 Review of Systems Const: Reports: fatigue Card: Denies: chest pain, palpitations or irregular heart rhythm Resp: Reports: non-productive cough GI: Denies: abdominal pain, nausea or vomiting Psych: Denies: anxiety or depression PFS ED PFSH: Medical History Glucose intolerance [place] (myocardial infarction) Apr 2020 Hypertension Hypercholesteremia Gout Family History Mother Cancer breast Grandfather Cancer prostate Social History Smoking and tobacco/nicotine status: former use of tobacco/nicotine Physical Exam Const: COMMON NORMALS: no acute distress, patient oriented x3, alert and well nourished Resp: COMMON NORMALS: normal respiratory effort and No use of accessory muscles Cardio: COMMON NORMALS: regular rate and regular rhythm RATE: regular rate RHYTHM: regular rhythm Extremity: COMMON NORMALS: normal to inspection, full ROM and capillary refill normal Neuro: COMMON NORMALS: patient oriented x3, moves all extremities and no focal motor deficits SENSORIUM/ORIENTATION: Yes alert Psych: COMMON NORMALS: mental status grossly normal, cooperative and normal affect Skin: COMMON NORMALS: no rashes or lesions noted GENERAL SKIN EXAM: no rashes or lesions noted Course Vital Signs: Vital signs: Vital Signs Temperature 97.7 F 11/13/24 13:33 Pulse Rate 88 11/13/24 13:33 Respiratory Rate 15 11/13/24 13:33 Blood Pressure 208/127 11/13/24 13:33 Pulse Oximetry 97 11/13/24 13:33 Oxygen Delivery Me thod Room Air 11/13/24 13:33 MDM - General Adult Medical Decision Making Patient's blood pressure responded appropriately to carvedilol 25 mg p.o. Patient was recommended to stop the Sudafed as this is likely the cause of his elevated blood pressure in addition to not having his carvedilol. Patient with a known history of hypertension and asymptomatic so no further workup was indicated. Patient stable discharged home. Did recommend he feels his carvedilol prescription and takes the night dose as prescribed. No radiology studies performed this visit Discharge Plan Discharge Patient Disposition: Home Clinical Impression: Chronic hypertension Condition: Stable Prescriptions: No Action levofloxacin 750 mg tablet 750 mg PO DAILY 7 Days Qty: 7 0RF albuterol sulfate [Ventolin HFA] 90 mcg/actuation HFA aerosol inhaler 2 inh inhalation Q6H PRN (Reason: shortness of breath or wheezing) Qty: 6.7 0RF carvedilol 12.5 mg tablet 12.5 mg PO BID 30 Days Qty: 60 0RF Rx Instructions: must administer with a meal/food metformin 500 mg tablet 500 mg PO BID fenofibrate 54 mg tablet 54 mg PO DAILY clopidogrel [Plavix] 75 mg tablet 75 mg PO DIRECTED Qty: 90 3RF Rx Instructions: Take 300mg (4 tabs) first dose, then 75mg (1 tab) daily lisinopril 40 mg tablet 40 mg PO DAILY Qty: 90 3RF aspirin [Adult Aspirin Regimen] 81 mg tablet,delayed release (DR/EC) 81 mg PO DAILY 90 Days Qty: 90 0RF rosuvastatin 40 mg tablet 20 mg PO DAILY 90 Days Qty: 90 0RF Discharge Orders: Discharge ED (Routine); Ordered 11/13/24 Ordered By: Francisco Schaffer Referrals: Connie Tillman FNP [Primary Care Provider, Nurse Practitioner] Discharge Diet: Usual diet Discharge Activity: Resume usual activity Patient Instructions: Chronic Hypertension (DC), Hypertension (ED), Opioid Safety, Pain Management Activity Restrictions/Additional Instructions: Please take your carvedilol as prescribed this evening. Please limit Sudafed, Benadryl and other medications that can raise your blood pressure. Follow your primary care provider in a couple days for recheck. Print Language: Upper Sorbian Coding Level of Care Code ED Professor Of Physical Education for Cathy Damon
[2024-11-13 14:07] VITALS: BP 201/136; PULSE 79; O2SAT 93
[2024-11-13] MEDS: carvedilol 25 mg Tablet PO (14:07)
[2024-11-13 14:30] VITALS: BP 164/117; PULSE 67; O2SAT 95
[2024-11-13 15:19] VITALS: BP 150/88; PULSE 66; O2SAT 95
--- NOTE | 2024-11-13 15:53 | ECG_ITS ---
[employer] Test Date: 2024-11-13 Pat Name: Gagandeep Ocampo Department: Room: Gender: Male Fabrication Manager: : 1970 Requested By: Francisco Schaffer Order Number: [id number] MD: Shoaib Hernandez M.D. Measurements Intervals [place] Rate: 67 P: 20 MO: 156 QRS: -49 QRSD: 119 T: 20 QT: 369 QTc: 392 Interpretive Statements SINUS RHYTHM LOW QRS VOLTAGE IN PRECORDIAL LEADS [QRS DEFLECTION < 1.0 mV IN CHEST LEADS] INCOMPLETE RIGHT BUNDLE BRANCH BLOCK [90+ ms QRS DURATION, TERMINAL R IN V1/V2, 40+ ms S IN I/aVL/V4/V5/V6] LEFT ANTERIOR FASCICULAR BLOCK [QRS AXIS <= -45, QR IN I, RS IN II] ANTEROSEPTAL MYOCARDIAL INFARCTION , OF INDETERMINATE AGE [40+ ms Q WAVE IN V1-V4] No previous ECG available for comparison Electronically Signed On 11-14-2024 10:22:30 CDT by Shoaib Hernandez M.D. [email or web address]
== END 2024-11-13 15:21 | disposition home or self-care (01) ==
PROVIDERS: Emergency Provider Student in an Organized Health Care Education/Training Program; PCP Nurse Practitioner Family
DX: I10 Essential (primary) hypertension (principal); Z79.84 Long term (current) use of oral hypoglycemic drugs; Z79.82 Long term (current) use of aspirin; Z87.891 Personal history of nicotine dependence
CPT/HCPCS: 36415; 93005; 99283; J9999

== ENCOUNTER → 2025-02-01 10:27 | Outpatient (BNVA) | payer BC, SELFPAY | PROVIDERS: PCP Nurse Practitioner Family; Visit Provider Nurse Practitioner Family | DX: I10 Essential (primary) hypertension (principal) | CPT/HCPCS: 36415; 80053 ==